=== PATIENT | male | born 1990 | race Caucasian/White ===

== ENCOUNTER 2017-02-11 18:31 | Emergency (ER) | payer OTHER ==
[2017-02-11 18:49] VITALS: BP 124/79
[2017-02-11] MEDS ORDERED: CIPROFLOXACIN 250 MG TABLET PO STA (22:15)
[2017-02-11] MEDS ORDERED: TETANUS/DIPHTHERIA/PERTUSSIS 0.5 ML SYRINGE IM ONE ×2 (22:15→22:18)
[2017-02-11] MEDS ORDERED: CIPROFLOXACIN 250 MG TABLET PO ONE (22:18)
--- NOTE | 2017-02-11 23:11 | ED Physician Documentation ---
History of Present Illness - Stated complaint Stated Complaint: RT FOOT PUNCTURE - Chief complaint Chief Complaint: Ext Problem - Additonal information Additional information: hx from pt healthy 26 male stepped on a nail in a board at work went through his work boot into his foot and may have been embedded in bone he pulled it out intact pain and swelling at puncture Review of Systems Skin: reports: Other (puncture wound) Immunocompromised: denies: Immunocompromised PD PAST MEDICAL HISTORY - Past Medical History Past Medical History: No - Past Surgical History Past Surgical History: No - Present Medications Home Medications: Ambulatory Orders Medication Instructions Recorded Confirmed Ciprofloxacin HCl [Cipro] 500 mg PO BID #9 tablet 02/11/17 - Allergies Allergies/Adverse Reactions: Allergies Allergy/AdvReac Type Severity Reaction Status Date / Time No Known Drug Allergies Allergy Verified 02/11/17 18:49 - Social History Does the pt smoke?: Yes Smoking Status: Current every day smoker Does the pt drink ETOH?: Yes ETOH Use: Beer Does the pt have substance abuse?: No - Immunizations Immunizations are current?: Yes - POLST Patient has POLST: No PD ED PE NORMAL - Vitals Vital signs reviewed: Yes - Extremities Extremities: Other (puncture wound to sole of foot near 2nd MT head, local swelling and TTP, no FB visible or palpable, pain with ROM of toe but able, MSV intact) Results - Vitals Vitals: Vital Signs - 24 hr 02/11/17 18:46 Temperature 36.5 C Heart Rate 87 Respiratory 20 Rate Blood Pressure 124/79 O2 Saturation 98 Oxygen O2 Source Room air - Rads (name of study) foot Radiology: See rad report (neg) PD MEDICAL DECISION MAKING - ED course ED course: d/w pt why cipro is needed in this situation and potential risks of sun sensitivity and tendon/nerve problems - will only need for 5 days, advised to limit exercise and stop med and call ER or PMD if joint pain etc Departure - Departure Disposition: 01 Home, Self Care Clinical Impression: Puncture wound of foot Qualifiers: Encounter type: initial encounter Laterality: right Qualified Code(s): S91.331A - Puncture wound without foreign body, right foot, initial encounter Condition: Good Instructions: ED Wound Puncture Foot Prescriptions: Ciprofloxacin HCl [Cipro] 500 mg PO BID #9 tablet Comments: The xray was fine - no fracture or bone injury Take the cipro twice a day for 5 days to prevent infection. As discussed you should limit strenuous exercise and if you feel any tendon or joint pains or develop numbness or tingling stop the antibiotic and call your PMD or the ER Motrin and tylenol for pain. Carefully wash the wound and apply antibiotic ointment twice a day. Keep the foot clean (wear socks and shoes not bare feet or sandals) Return of develop more swelling, redness, drainage, fever Forms: Activity restrictions
[2017-02-11] MEDS ORDERED: IBUPROFEN 400 MG TABLET PO STA (23:12)
[2017-02-11] MEDS ORDERED: ACETAMINOPHEN 325 MG TABLET PO STA (23:12)
--- NOTE | 2017-02-11 23:19 | XRAY Preliminary Report ---
Exam: XR Foot 3 View RT IMPRESSION: 1. No fracture or foreign body seen. [facility] SITE ID: [id number]
--- NOTE | 2017-02-11 23:22 | XRAY Report ---
EXAM: RIGHT FOOT RADIOGRAPHY EXAM DATE: 02/11/2017 10:43 PM. CLINICAL HISTORY: Puncture wound. NAIL TO FOOT. COMPARISON: None. TECHNIQUE: 3 views. FINDINGS: Bones: Normal. No fractures or bone lesions. Joints: Normal. No subluxations. Soft Tissues: No radiopaque foreign body identified. IMPRESSION: 1. No fracture or foreign body seen. [facility] Referring Provider Line: [phone] SITE ID: [id number]
[2017-02-11] MEDS ORDERED: IBUPROFEN 400 MG TABLET PO ONE (23:24)
[2017-02-11] MEDS ORDERED: ACETAMINOPHEN 325 MG TABLET PO ONE (23:24)
== END 2017-02-11 23:31 | disposition home or self-care (01) ==
LOC: ED 18:31
DX: S91.331A Puncture wound without foreign body, right foot, initial encounter (principal); W45.0XXA Nail entering through skin, initial encounter; Y92.89 Other specified places as the place of occurrence of the external cause; Y99.0 Civilian activity done for income or pay; Z23 Encounter for immunization; F17.200 Nicotine dependence, unspecified, uncomplicated
CPT/HCPCS: 73630; 90471; 90715; 99283; A9270